=== PATIENT | female | born 1970 | race Caucasian/White ===

== ENCOUNTER 2017-06-07 20:28 | Emergency (ER) | payer MEDICAID ==
[2017-06-07 20:46] VITALS: TEMP 98.1
--- NOTE | 2017-06-07 20:47 | ED PDOC ---
Arrival/HPI - General Chief Complaint: Lower Extremity Problem/Injury Time Seen by Provider: 06/07/17 20:47 Historian: Patient - History of Present Illness Narrative History of Present Illness (Text): 06/07/17 20:47 46 y/o female, no significant pmh, nkda, c/o rt. heel/calf pain x 3 months on and off with no fall or trauma. Aching pain, mainly on the sole, radiating to the rt. calf region, no fever or chills, no numbness or tingling, no chest pain or shortness of breath, no other medical or psychological complaints. Past Medical History - Provider Review Nursing Documentation Reviewed: Yes - Travel History If Yes, travel location?: [place] - Infectious Disease Hx of Infectious Diseases: None - Reproductive Menopause: No - Psychiatric Hx Substance Use: No - Anesthesia Hx Anesthesia: No Family/Social History - Physician Review Nursing Documentation Reviewed: Yes Family/Social History: Unknown Family HX Smoking Status: Unknown If Ever Smoked Hx Alcohol Use: No Hx Substance Use: No Allergies/Home Meds Allergies/Adverse Reactions: Allergies No Known Allergies Allergy (Verified 06/07/17 20:46) Home Medications: Home Meds Medication Instructions Recorded Confirmed Ibuprofen [Motrin Ib] 400 mg PO PRN PRN 06/07/17 06/07/17 Review of Systems - Review of Systems Constitutional: absent: Fatigue, Fevers Eyes: absent: Vision Changes ENT: absent: Hearing Changes Respiratory: absent: SOB, Cough Cardiovascular: absent: Chest Pain Gastrointestinal: absent: Abdominal Pain, Nausea, Vomiting Musculoskeletal: Myalgias. absent: Arthralgias Skin: absent: Rash, Pruritis Psychiatric: absent: Anxiety, Depression, Suicidal Ideation Physical Exam Vital Signs Reviewed: Yes Vital Signs Temp Pulse Resp BP Pulse Ox 06/07/17 22:08 79 18 110/68 98 06/07/17 20:42 98.1 F 76 16 113/71 97 Temperature: Afebrile Blood Pressure: Normal Pulse: Regular Respiratory Rate: Normal Appearance: Positive for: Well-Appearing, Non-Toxic, Comfortable Pain Distress: Mild Mental Status: Positive for: Alert and Oriented X 3 - Systems Exam Head: Present: Atraumatic, Normocephalic Pupils: Present: PERRL Extroacular Muscles: Present: EOMI Conjunctiva: Present: Normal Mouth: Present: Moist Mucous Membranes Neck: Present: Normal Range of Motion Respiratory/Chest: Present: Clear to Auscultation, Good Air Exchange. No: Respiratory Distress, Accessory Muscle Use Cardiovascular: Present: Regular Rate and Rhythm, Normal S1, S2. No: Murmurs Abdomen: Present: Normal Bowel Sounds. No: Tenderness, Distention, Peritoneal Signs Back: Present: Normal Inspection Upper Extremity: Present: Normal Inspection. No: Cyanosis, Edema Lower Extremity: Present: Normal Inspection, Other (RLE: mild +ttp on the rt. plantar region and rt. calf region, no swelling, no deformity, FROM without limitation, sensation intact, motor 5/5, +DPPT pulses, capillary refill< 2 seconds, neurovascular intact. ). No: Edema Neurological: Present: GCS=15, Speech Normal, Motor Func Grossly Intact, Gait Normal, Memory Normal Skin: Present: Warm, Dry, Normal Color. No: Rashes Psychiatric: Present: Alert, Oriented x 3, Normal Insight, Normal Concentration Medical Decision Making ED Course and Treatment: 06/07/17 21:19 -RLE venuous doppler -Motrin 06/07/17 22:10 -Pain decreased -RLE Venuous Doppler: as per preliminary report, no acute DVT -Discharge home with naproxen, ice compression, don't wear any flip flops or flat base shoe, follow up with your own pmd and watch assembler within 2 days, return to the ER for any new or worsening signs or symptoms. - RAD Interpretation Radiology Orders: 06/07/17 20:57 DUPLEX LOWER EXTRM VEIN RIGHT [US] Stat As per preliminary report, no acute DVT Guide Foreign Tour: Radiologist - Medication Orders Current Medication Orders: Discontinued Medications Ibuprofen (Motrin Tab) 600 mg PO STAT STA Stop: 06/07/17 20:58 Last Admin: 06/07/17 21:20 Dose: 600 mg - PA / ETHNOARCHAEOLOGIST / Resident Statement MD/DO has reviewed & agrees with the documentation as recorded. Disposition/Present on Arrival - Present on Arrival Any Indicators Present on Arrival: No History of DVT/PE: No History of Uncontrolled Diabetes: No Urinary Catheter: No History of Decub. Ulcer: No History Surgical Site Infection Following: None - Disposition Have Diagnosis and Disposition been Completed?: Yes Diagnosis: Plantar fasciitis, Leg pain Disposition: HOME/ ROUTINE Disposition Time: 21:20 Patient Plan: Discharge Patient Problems: Current Active Problems Problem Status Onset Plantar fasciitis Acute Leg pain Acute Condition: IMPROVED Additional Instructions: -Discharge home with naproxen, ice compression, don't wear any flip flops or flat base shoe, follow up with your own pmd and watch assembler within 2 days, return to the ER for any new or worsening signs or symptoms. Prescriptions: RX: Naproxen 500 mg PO BID PRN #20 tab PRN Reason: Other Referrals: Brittaney Galeas MD [Primary Care Provider] - Follow up with primary Srikanth Hannon DPM [Staff Provider] - Follow up with primary Forms: [facility] (Sammarinese), WORK NOTE
[2017-06-07 22:09] VITALS: BP 110/68; PULSE 79; RESP 18; O2SAT 98
--- NOTE | 2017-06-08 08:03 | US ---
PROCEDURE: Right lower extremity venous US HISTORY: Leg pain and swelling. Evaluate for DVT. PHYSICIAN(S): Devon Moyer M.D. TECHNIQUE: Duplex sonography and color-flow Doppler with graded compression were used to evaluate the deep venous system of the right lower extremity. FINDINGS: The visualized deep venous system of the right lower extremity is sonographically normal and compressible. Normal waveforms and augmentation are seen. There is no sonographic evidence for deep venous thrombosis in the visualized segments of the right lower extremity. IMPRESSION: 1. No sonographic evidence for deep venous thrombosis in the visualized segments of the right lower extremity.
== END 2017-06-07 22:17 | disposition home or self-care (01) ==
LOC: MERGE 20:28 → ED 20:28
DX: M72.2 Plantar fascial fibromatosis (principal); M79.661 Pain in right lower leg

== ENCOUNTER 2018-02-20 16:44 | Emergency (ER) | payer MEDICAID ==
[2018-02-20 17:10] VITALS: BMI 29.0
--- NOTE | 2018-02-20 17:14 | ED PDOC ---
Arrival/HPI - General Time Seen by Provider: 02/20/18 16:56 Historian: Patient - History of Present Illness Narrative History of Present Illness (Text): 02/20/18 17:08 47yo female with no PMhx who present for left foot pain x one year. The son by the bedside states pain is usually when she stands up in the morning after sleeping and with weight bearing after sitting for prolonged time. States she saw her PMD for the pain in the past and was given pain medication, but still having pain. states she have not taken any pain medication recently. She came to ED for the worsening pain. Denies trauma, calf pain, any other complaint. Past Medical History - Provider Review Nursing Documentation Reviewed: Yes - Infectious Disease Hx of Infectious Diseases: None - Psychiatric Hx Substance Use: No - Anesthesia Hx Anesthesia: No Family/Social History - Physician Review Nursing Documentation Reviewed: Yes Family/Social History: Unknown Family HX Smoking Status: Unknown If Ever Smoked Hx Alcohol Use: No Hx Substance Use: No Allergies/Home Meds Allergies/Adverse Reactions: Allergies No Known Allergies Allergy (Verified 02/20/18 17:08) Review of Systems - Physician Review All systems were reviewed & negative as marked: Yes - Review of Systems Constitutional: Normal Eyes: Normal ENT: Normal Respiratory: Normal Cardiovascular: Normal Gastrointestinal: Normal Genitourinary Female: Normal Musculoskeletal: Arthralgias (Left foot) Skin: Normal Neurological: Normal Endocrine: Normal Hemo/Lymphatic: Normal Psychiatric: Normal Physical Exam Vital Signs Reviewed: Yes Vital Signs Temp Pulse Resp BP Pulse Ox 02/20/18 19:04 97.8 F 78 18 147/72 99 02/20/18 19:03 97.9 F 78 18 147/72 99 02/20/18 17:08 97.9 F 75 17 129/72 100 Temperature: Afebrile Blood Pressure: Normal Pulse: Regular Respiratory Rate: Normal Appearance: Positive for: Well-Appearing, Non-Toxic, Comfortable Pain Distress: None Mental Status: Positive for: Alert and Oriented X 3 - Systems Exam Head: Present: Atraumatic, Normocephalic Pupils: Present: PERRL Extroacular Muscles: Present: EOMI Conjunctiva: Present: Normal Mouth: Present: Moist Mucous Membranes Neck: Present: Normal Range of Motion Respiratory/Chest: Present: Clear to Auscultation, Good Air Exchange. No: Respiratory Distress, Accessory Muscle Use Cardiovascular: Present: Regular Rate and Rhythm, Normal S1, S2. No: Murmurs Abdomen: No: Tenderness, Distention, Peritoneal Signs Back: Present: Normal Inspection Upper Extremity: Present: Normal Inspection. No: Cyanosis, Edema Lower Extremity: Present: NORMAL PULSES, Normal ROM, Tenderness (Left heel), Neurovascularly Intact. No: Edema, Swelling, Erythema, Temperature Abnormalties Neurological: Present: GCS=15, CN II-XII Intact, Speech Normal Skin: Present: Warm, Dry, Normal Color. No: Rashes Psychiatric: Present: Alert, Oriented x 3, Normal Insight, Normal Concentration Medical Decision Making ED Course and Treatment: 02/20/18 23:01 PT's pain was controlled in ED with medication. Foot xray - Calcneal spur noted Result was DW the pt. she was referred to a professor of poultry science. Tramadol and ibuprofen rx given. - RAD Interpretation Radiology Orders: 02/20/18 17:16 FOOT LEFT 3 VIEWS ROUTINE [RAD] Stat - Medication Orders Current Medication Orders: Discontinued Medications Ketorolac Tromethamine (Toradol) 60 mg IM STAT STA Stop: 02/20/18 17:17 Last Admin: 02/20/18 17:42 Dose: 60 mg MAR Pain Assessment Document 02/20/18 17:42 [facility] (Rec: 02/20/18 17:43 [facility] [id number]) Pain Reassessment Is this a pain reassessment? No Sleep Is patient sleeping during reassessment? No Presence of Pain Presence of Pain Yes Location Left, Right or Bilateral Left Pain Location Body Site Foot Description Intensity of Pain at present 3 IM Administration Charges Document 02/20/18 17:42 [facility] (Rec: 02/20/18 17:43 [facility] [id number]) Charges for Administration # of IM Administrations 1 Disposition/Present on Arrival - Present on Arrival Any Indicators Present on Arrival: No History of DVT/PE: No History of Uncontrolled Diabetes: No Urinary Catheter: No History Surgical Site Infection Following: None - Disposition Have Diagnosis and Disposition been Completed?: Yes Diagnosis: Plantar fasciitis Disposition: HOME/ ROUTINE Disposition Time: 18:55 Patient Plan: Discharge Condition: STABLE Discharge Instructions (ExitCare): Heel Pain (Caused by Plantar Fasciitis), Plantar Fasciitis Exercises Additional Instructions: Follow up with your Doctor/Account Support Specialist Return to ED for any new or worsening symptoms Prescriptions: Ibuprofen [Motrin Tab] 600 mg PO Q6 #15 tab traMADol [Ultram] 50 mg PO TID #12 tab Referrals: Dominic Davalos, [Non-Staff] - Follow up with primary Srikanth Hannon DPM [Staff Provider] - Follow up with primary Forms: [employer] (Greenlandic)
[2018-02-20 19:03] VITALS: BP 147/72; PULSE 78; RESP 18; O2SAT 99
[2018-02-20 19:04] VITALS: TEMP 97.8
--- NOTE | 2018-02-21 08:42 | RAD ---
PROCEDURE: Left Foot Radiographs. HISTORY: foot pain COMPARISON: None. FINDINGS: BONES: Plantar and Achilles Tendon insertion calcaneal spurs. JOINTS: Normal. SOFT TISSUES: Normal. OTHER FINDINGS: None. IMPRESSION: No acute findings related to/accounting for the clinical presentation. Additional benign and/or incidental findings described above.
== END 2018-02-20 19:05 | disposition home or self-care (01) ==
LOC: ED 16:44
DX: M72.2 Plantar fascial fibromatosis (principal)
CPT/HCPCS: 73630; 96372; 99283; J1885

== ENCOUNTER 2018-08-25 15:37 | Emergency (ER) | payer MEDICAID ==
[2018-08-25 15:38] VITALS: BMI 29.0
--- NOTE | 2018-08-25 17:06 | ED PDOC ---
Arrival/HPI - General Chief Complaint: Upper Extremity Problem/Injury Time Seen by Provider: 08/25/18 16:00 Historian: Patient, Family (Son), Labor Service Representative (Son) EM Caveat: Language Barrier - History of Present Illness Narrative History of Present Illness (Text): 08/25/18 17:33 47 y/o female with no significant PMH presents to the ED c/o right shoulder pain x 5 days. Patient describes sharp anterior shoulder pain worse with abduction and internal rotation. Has not taken any medication for pain. Patient has experienced this pain before a few months ago, and states it resolved spontaneously after a few days. 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 Denies trauma/injury, redness, swelling, fevers, chills, breast pain, left arm pain, chest pain, SOB, cough, or any other associated symptoms. Time/Duration: < week (5 days) Symptom Onset: Gradual Symptom Course: Unchanged Quality: Other (Sharp) Past Medical History - Provider Review Nursing Documentation Reviewed: Yes - Infectious Disease Hx of Infectious Diseases: None - Reproductive Menopause: Yes - Pulmonary Hx Pulmonary Edema: Yes - Psychiatric Hx Substance Use: No - Surgical History Other/Comment: IAB - Anesthesia Hx Anesthesia: No Family/Social History - Physician Review Nursing Documentation Reviewed: Yes Family/Social History: No Known Family HX Smoking Status: Unknown If Ever Smoked Hx Alcohol Use: No Hx Substance Use: No Allergies/Home Meds Allergies/Adverse Reactions: Allergies No Known Allergies Allergy (Verified 02/20/18 17:08) Review of Systems - Review of Systems Constitutional: Normal Eyes: Normal ENT: Normal Respiratory: Normal. absent: SOB, Cough Cardiovascular: Normal. absent: Chest Pain, Palpitations Gastrointestinal: Normal. absent: Abdominal Pain, Nausea, Vomiting Genitourinary Female: Normal Musculoskeletal: Arthralgias (right shoulder) Skin: Normal. absent: Abscess, Cellulitis Neurological: Normal. absent: Headache, Dizziness Endocrine: Normal Hemo/Lymphatic: Normal. absent: Adenopathy Psychiatric: Normal Physical Exam Vital Signs Reviewed: Yes Vital Signs Temp Pulse Resp BP Pulse Ox 08/25/18 16:00 98.9 F 88 18 113/75 97 Temperature: Afebrile Blood Pressure: Normal Pulse: Regular Respiratory Rate: Normal Appearance: Positive for: Well-Appearing, Non-Toxic, Comfortable Pain Distress: None Mental Status: Positive for: Alert and Oriented X 3 - Systems Exam Head: Present: Atraumatic, Normocephalic Pupils: Present: PERRL Extroacular Muscles: Present: EOMI Conjunctiva: Present: Normal Mouth: Present: Moist Mucous Membranes Neck: Present: Normal Range of Motion Respiratory/Chest: Present: Clear to Auscultation, Good Air Exchange. No: Respiratory Distress, Accessory Muscle Use Cardiovascular: Present: Regular Rate and Rhythm, Normal S1, S2, Peripheal Pulses Present. No: Murmurs Abdomen: No: Tenderness, Distention, Peritoneal Signs Breast/Axillary: Present: Symmetrical. No: Axillary Lymphad, Discoloration, Erythema, Fluctuance, Masses, Nipple Discharge, Swelling, Tender to Palpation Back: Present: Normal Inspection. No: CVA Tenderness, Midline Tenderness, Paraspinal Tenderness Upper Extremity: Present: Normal Inspection, NORMAL PULSES, Tenderness (anterior right shoulder over AC joint and humeral head), Neurovascularly Intact, Capillary Refill < 2s, Other (+ mckeon gabriella, + gerbers tests right side). No: Cyanosis, Edema, Normal ROM (decreased internal rotation and abduction of right shoulder), Swelling, Erythema, Temperature Abnormalties, Deformity Lower Extremity: Present: Normal Inspection, NORMAL PULSES, Normal ROM, Capillary Refill < 2 s. No: Edema Neurological: Present: GCS=15, CN II-XII Intact, Speech Normal, Motor Func Grossly Intact, Normal Sensory Function, Gait Normal, Memory Normal Skin: Present: Warm, Dry, Normal Color. No: Rashes, Hot Psychiatric: Present: Alert, Oriented x 3, Normal Insight, Normal Concentration Medical Decision Making ED Course and Treatment: 08/25/18 16:30 Initial Plan: * Right Shoulder XR * Toradol Triage and nursing notes swelling under right arm. No swelling noted on exam, and patient denies swelling during patient interview. ED attending, Dr. Limon evaluated patient at bedside and agrees with plan of care. Patient reports marginally decreased pain after medication. [place] XR shows calcific tendinitis and osteoarthritis of the right shoulder. Plan of care discussed with patient, and strict instructions given regarding prescriptions, importance of follow up, and signs to return to Emergency Department, to include worsening pain, redness, swelling, chest pain, SOB, or any other new/worsening symptoms. Patient verbalizes understanding of discussion. Patient A&Ox3, ambulating with steady gait, stable for discharge home. Patient given a lidoderm patch and sling on discharge by nursing. Impression: Calcific Tendinitis Osteoarthritis - RAD Interpretation Narrative RAD Interpretations (Text): 08/25/18 17:44 Right Shoulder Xray: FINDINGS: BONES: Normal. No fracture. JOINTS: Mild degenerative osteoarthrosis in the acromioclavicular joint. The glenohumeral joint is normal. SOFT TISSUES: There are faint calcifications lateral to the humeral head which may represent calcific tendinitis in the appropriate clinical setting OTHER FINDINGS: None. IMPRESSION: No acute fracture or dislocation. Mild degenerative osteoarthrosis in the acromioclavicular joint. Periarticular calcifications may represent calcific tendinitis in the appropriate clinical setting. Radiology Orders: 08/25/18 16:40 SHOULDER RIGHT [RAD] Stat Clay Machine Operator: ED Physician, Radiologist Disposition/Present on Arrival - Present on Arrival Any Indicators Present on Arrival: No History of DVT/PE: No History of Uncontrolled Diabetes: No Urinary Catheter: No History of Decub. Ulcer: No History Surgical Site Infection Following: None - Disposition Have Diagnosis and Disposition been Completed?: Yes Diagnosis: Calcific tendinitis, Osteoarthritis, Shoulder pain, right Disposition: HOME/ ROUTINE Disposition Time: 17:30 Patient Plan: Discharge Condition: IMPROVED Discharge Instructions (ExitCare): Tendonitis, Osteoarthritis (DC) Additional Instructions: Rest, no strenuous activity Take Naproxen once daily with food as needed for pain Heating pads Followup with orthopedic doctor within 2 days Return to ER for new/worsening symptoms Prescriptions: Naproxen 500 mg PO DAILY PRN #30 tablet PRN Reason: Pain, Moderate (4-7) Referrals: Merlin Avitia MD [Staff Provider] - Follow up with primary [facility] [place] [Outside] - Follow up with primary Forms: [facility] (Latvian), WORK NOTE
--- NOTE | 2018-08-25 17:43 | RAD ---
Date of service: 08/25/2018 PROCEDURE: Radiographs of the Right Shoulder HISTORY: shoulder pain COMPARISON: No prior. FINDINGS: BONES: Normal. No fracture. JOINTS: Mild degenerative osteoarthrosis in the acromioclavicular joint. The glenohumeral joint is normal. SOFT TISSUES: There are faint calcifications lateral to the humeral head which may represent calcific tendinitis in the appropriate clinical setting OTHER FINDINGS: None. IMPRESSION: No acute fracture or dislocation. Mild degenerative osteoarthrosis in the acromioclavicular joint. Periarticular calcifications may represent calcific tendinitis in the appropriate clinical setting.
[2018-08-25] MEDS ORDERED: Lidocaine 5% Patch TD STA (17:48)
[2018-08-25 17:49] VITALS: BP 117/65; PULSE 71; RESP 16; O2SAT 99
[2018-08-25 18:34] VITALS: TEMP 98.1
== END 2018-08-25 18:32 | disposition home or self-care (01) ==
LOC: ED 15:37
DX: M75.31 Calcific tendinitis of right shoulder (principal); M19.011 Primary osteoarthritis, right shoulder
CPT/HCPCS: 73030; 96372; 99284; J1885